=== PATIENT | female | born 1945 | race Caucasian/White ===

== ENCOUNTER → 2019-02-23 | Outpatient (CLI) | payer MEDICARE, OTHER ==
--- NOTE | 2019-02-23 11:43 | RAD ---
Bone densitometry 02/23/2019 10:20 AM Indication: Menopausal screening exam ovarian failure. Comparison Study: None. Discussion: Bone Densitometry was performed with dual photon absorption of the lumbar spine and proximal) femur. Lumbar Spine: Bone average density is 1.076g/cm2 for L1-L4. T-Score is -0.9. Right femoral neck: Bone average density is 0.6-8g/cm2. T-Score is -2.9. IMPRESSION: Osteoporosis based on decreased bone mineral density, right femoral neck. Fracture risk is high. Note: Definitions established by the World [employer] Organization: Normal: T-score is -1.0 or above. Osteopenia: T-score is between -1.0 and -2.5. Osteoporosis: T-score is -2.5 or below. Electronically signed by: Sukhdev Kohler MD (02/23/2019 11:40 AM) [id number]
== END | disposition home or self-care (01) ==
LOC: DXRAD 10:07
PROVIDERS: ATTEND Specialist
DX: M81.8 Other osteoporosis without current pathological fracture (principal)
CPT/HCPCS: 77080